=== PATIENT | female | born 1945 | race Caucasian/White ===

== ENCOUNTER 2016-10-07 11:15 | Day surgery (SDC) | payer MEDICARE ==
[~2016-10-07] VITALS: Ht 170.2 cm; Wt 102.7 kg
[~2016-10-07 11:15] MED LIST: ALBU6.7H INH; ALPR0.25 PO; HYDR12.57 PO; METF500T PO; MOBI7.5T PO; TRAZ100T4 PO; VENL75XR PO
[2016-10-07 11:38] VITALS: BP 166/97; PULSE 84; RESP 18; TEMP 97.6; O2SAT 93
[2016-10-07] MEDS ORDERED: INSULIN HUMAN REGULAR 1,000 UNITS/10 ML VIAL SQ PRN (12:00)
[2016-10-07] MEDS ORDERED: SODIUM CHLORID 0.9% 500 ML IV PRN (12:00)
[2016-10-07] MEDS ORDERED: METOPROLOL TARTRATE 25 MG TAB PO PRN (12:00)
[2016-10-07] MEDS ORDERED: LACTATED RINGER'S 1000 ML IV PRN (12:00)
[2016-10-07] MEDS ORDERED: ceFAZolin 2 GM PREMIX 50 ML IV SCH (12:00)
[2016-10-07] MEDS ORDERED: SODIUM CHLOR 0.9% 1000 ML INJ 1,000 ML IV SCH (12:00)
[2016-10-07] MEDS ORDERED: LORC10TA24 PO (12:16)
[2016-10-07] MEDS ORDERED: TRAZ100T6 PO (12:16)
[2016-10-07 12:43] LABS: BASOPHIL # 0.1 TH/MM3 (0-0.2); BASOPHIL % 1.1 % (0.0-2.0); EOSINOPHIL # 0.3 TH/MM3 (0-0.4); EOSINOPHIL % 2.9 % (0.0-4.0); HEMATOCRIT 42.1 % (35.0-46.0); HEMO FLAGS DIFF FINAL; LYMPHOCYTE # 2.8 TH/MM3 (1.0-4.8); MEAN CELL VOLUME 89.6 FL (80.0-100.0); MEAN CORPUSCULAR HGB CONC 35.7 % (32.0-36.0); MONO % 9.1 % (0.0-8.0); NEUT % 58.9 % (16.0-70.0); PLATELET COUNT 297 TH/MM3 (150-450); RED CELL DISTRIBUTION WIDTH 13.5 % (11.6-17.2); WHITE BLOOD COUNT 10.1 TH/MM3 (4.0-11.0)
[2016-10-07 12:47] LABS: PROTHROMBIN TIME - PATIENT 10.7 SEC (9.8-11.6)
[2016-10-07 12:48] LABS: APTT (PATIENT) 25.6 SEC (24.3-30.1)
--- NOTE | 2016-10-07 13:19 | EKG ---
Date Performed: 10/07/2016 Time Performed: 12:00:54 PTAGE: 71 years EKG: Sinus rhythm LOW QRS VOLTAGE IN PRECORDIAL LEADS BORDERLINE ECG No significant change from prior electrocardiogra m PREVIOUS TRACING : 01/07/2007 14.44 DOCTOR: Vipin Mak Interpretating Date/Time 10/07/2016 13:18:30
[2016-10-07 13:47] LABS: BICARBONATE 23.6 MEQ/L (21.0-32.0); POTASSIUM 3.4 MEQ/L (3.5-5.1)
== END 2016-10-07 14:14 | disposition home or self-care (01) ==
LOC: HROP 11:15 → HRIP 11:20 → HROP 14:14
PROVIDERS: ATTEND Internal Medicine
DX: M48.56XA Collapsed vertebra, not elsewhere classified, lumbar region, initial encounter for fracture (principal); Z53.9 Procedure and treatment not carried out, unspecified reason; M51.37 Other intervertebral disc degeneration, lumbosacral region; M48.06 Spinal stenosis, lumbar region; M54.32 Sciatica, left side; E78.5 Hyperlipidemia, unspecified; R29.6 Repeated falls; M19.90 Unspecified osteoarthritis, unspecified site; Z01.810 Encounter for preprocedural cardiovascular examination; Z01.812 Encounter for preprocedural laboratory examination
CPT/HCPCS: 80048; 85025; 85610; 85730; 93005; G0463; 99211

== ENCOUNTER → 2016-10-15 | Day surgery (SDC) | payer MEDICARE ==
[~2016-10-15] MED LIST changes: +BUPIVACAINE/EPINEPHRINE 0.5% PF 30 ML VIAL ONE; +IOHEXOL 180 MG/ML 20 ML VIAL (for RAD DIAG) ONE; +KETOROLAC TROMETHAMINE 30 MG/ML (IVP) VIAL IV PUSH ONE; +LACTATED RINGER'S 1000 ML INJ 1,000 ML ONE; +LIDOCAINE 1%/EPINEPHrine 1:100,000 SOLN 20 ML VIAL ONE; +LORC10TA24 PO; +MIDAZOLAM HCL 2 MG/2 ML VIAL ONE; +PROPOFOL 200 MG/20 ML AMP IV ONE; -TRAZ100T4 PO; +TRAZ100T6 PO; +ceFAZolin 2 GM PREMIX 50 ML ONE
--- NOTE | 2016-10-15 15:07 | TN ---
cc: LIDIA NAVARRO M.D. DATE OF SURGERY: 10/15/2016 PREOPERATIVE DIAGNOSIS Compression fracture L3, subacute. POSTOPERATIVE DIAGNOSIS Compression fracture L3, subacute. PROCEDURE Kyphoplasty of L3 and placement of a bone cement spacer. SURGEON Lidia Navarro ANESTHESIA TIVA. ESTIMATED BLOOD LOSS Minimal. INDICATION This patient is a 71-year-old female with a history of chronic back pain. The patient had a significant increasing back pain over a period of 6-8 weeks. Investigative study shows evidence of a subacute compression fracture at the L3 level. She presents for kyphoplasty of the same. DETAILS OF PROCEDURE The patient was brought to the operating room, given limited sedation, and rolled to a prone position on a radiolucent table. All pressure points were protected. The back was scrubbed with alcohol followed by Hibiclens followed by ChloraPrep and draped sterilely. Antibiotics were given within a one hour time window and a timeout was done. A single balloon approach was utilized from the left side using the Kyphon technique, a sequence of local anesthesia, small incision and awl placed through the pedicle and into the intervertebral body at an oblique angle. A 20 mm Kyphon balloon was elevated centrally. Overall we had good correction. On the back table methyl methacrylate was mixed and after approximately 11 minutes was injected. We had no extravasation. The fill overall was quite good. The cement was allowed to harden. The tubes were removed. Intraoperative x-rays were obtained. The wound was irrigated, anesthetized and closed with 4-0 Vicryl followed by Dermabond. The patient was awakened and taken to Recovery in satisfactory condition. MD YAN Harrington/KIM /2:53 PM /2:59 PM
== END | disposition home or self-care (01) ==
LOC: ESDC 11:58
PROVIDERS: ATTEND Orthopaedic Surgery Orthopaedic Surgery of the Spine
DX: S32.030A Wedge compression fracture of third lumbar vertebra, initial encounter for closed fracture (principal)
CPT/HCPCS: 01936; 22514; 72100; J0690; J1885; J2250; J3010; J7120; Q9965